=== PATIENT | female | born 1955 ===

== ENCOUNTER 2018-10-11 12:28 | Emergency (ER) | payer OTHER, BC ==
[~2018-10-11] VITALS: Ht 162.6 cm; Wt 77.1 kg
[~2018-10-11 12:28] MED LIST: AMLO10 PO; Celexa10 MG PO; LEVSOD100 PO; LOSARTAN-HCTZ1 EACH PO; Omeprazole20 M1 PO
[2018-10-14 03:10] LABS: HCV ANTIBODY <0.1 (0.0-0.9); HIV SCREEN 4TH GENERATION WRFX Non Reactive (Non Reactive)
== END 2018-10-11 13:16 | disposition home or self-care (01) ==
LOC: ER 12:28
PROVIDERS: Physician Assistant
DX: S61.234A Puncture wound without foreign body of right ring finger without damage to nail, initial encounter (principal); Z77.21 Contact with and (suspected) exposure to potentially hazardous body fluids; I10 Essential (primary) hypertension; Z87.891 Personal history of nicotine dependence; T68.XXXA Hypothermia, initial encounter; W46.0XXA Contact with hypodermic needle, initial encounter
CPT/HCPCS: 84460; 86317; 86703; 86803; 87340; 87389; 99282

== ENCOUNTER → 2019-01-14 | Outpatient (CLI) | payer OTHER, BC ==
[2019-01-16 10:06] LABS: HIV SCREEN 4TH GENERATION WRFX Non Reactive (Non Reactive)
== END | disposition home or self-care (01) ==
LOC: LAB EV 16:08 → LAB SHORT 16:08
PROVIDERS: Internal Medicine
DX: Z20.9 Contact with and (suspected) exposure to unspecified communicable disease (principal)
CPT/HCPCS: 87389

== ENCOUNTER 2019-02-15 08:50 | Day surgery (SDC) | payer BC ==
[~2019-02-15] VITALS: Ht 157.5 cm; Wt 76.7 kg
--- NOTE | 2019-02-15 11:18 | NUR ---
02/15/19 1118 Med Muhammad A LATE ENTRY FOR 1000 PT INFORMED OF DELAY IN ROOM DUE TO PREVIOUS CASE RUNNING LONG. PT DENIES ANY NEEDS AT THIS TIME.
== END 2019-02-15 13:45 | disposition home or self-care (01) ==
LOC: ORSCSDS 08:50
PROVIDERS: Orthopaedic Surgery
PROC: 0SQC4ZZ Repair Right Knee Joint, Percutaneous Endoscopic Approach (ICD-10-PCS; principal; 2019-02-15 10:00)
PROC: 0SBC4ZZ Excision of Right Knee Joint, Percutaneous Endoscopic Approach (ICD-10-PCS; principal; 2019-02-15 10:00)
DX: S83.241A Other tear of medial meniscus, current injury, right knee, initial encounter (principal); S83.281A Other tear of lateral meniscus, current injury, right knee, initial encounter; S83.511A Sprain of anterior cruciate ligament of right knee, initial encounter; I10 Essential (primary) hypertension; J45.909 Unspecified asthma, uncomplicated; E03.9 Hypothyroidism, unspecified; Z86.718 Personal history of other venous thrombosis and embolism; Z79.899 Other long term (current) drug therapy
CPT/HCPCS: A9270-GY; C1713; J0171; J1100; J1885; J2250; J2370; J2405; J2704; J2795; J3010; J7120

== ENCOUNTER → 2019-04-08 | Outpatient (CLI) | payer BC ==
[2019-04-08 12:42] LABS: Stool Occult Bld Immuno 1 Negative (NEGATIVE)
== END ==
LOC: LAB 11:13 → LAB SHORT 11:13
PROVIDERS: Nurse Practitioner Family
DX: C18.9 Malignant neoplasm of colon, unspecified (principal); E78.5 Hyperlipidemia, unspecified; E03.9 Hypothyroidism, unspecified
CPT/HCPCS: G0328

== ENCOUNTER 2021-05-18 11:16 | Emergency (ER) | payer OTHER, BC ==
[~2021-05-18 11:16] MED LIST changes: +OMEPRAZOLE20 M1 PO
== END 2021-05-18 11:39 | disposition left against medical advice (07) ==
LOC: ER 11:16
DX: Z53.21 Procedure and treatment not carried out due to patient leaving prior to being seen by health care provider (principal)
CPT/HCPCS: J7030

== ENCOUNTER 2021-07-12 11:10 | Day surgery (SDC) | payer BC ==
[~2021-07-12] VITALS: Ht 157.5 cm; Wt 80.8 kg
[~2021-07-12 11:10] MED LIST changes: +CALCIUM CIT 311 EAC7 PO; +EXFORGE HCT PO; +MELO7.5 PO; +META800; +PRAV20 PO
[2021-07-12] MEDS ORDERED: VALSARTAN-HCTZ1 EA10 PO (11:25)
== END 2021-07-12 12:20 | disposition home or self-care (01) ==
LOC: ORSCSDS 11:10
PROVIDERS: Anesthesiology
PROC: 3E0R33Z Introduction of Anti-inflammatory into Spinal Canal, Percutaneous Approach (ICD-10-PCS; principal; 2021-07-12 12:00)
DX: M51.16 Intervertebral disc disorders with radiculopathy, lumbar region (principal); M54.50 Low back pain, unspecified; I10 Essential (primary) hypertension; E03.9 Hypothyroidism, unspecified; K21.9 Gastro-esophageal reflux disease without esophagitis; F32.A Depression, unspecified; E78.00 Pure hypercholesterolemia, unspecified; Z79.899 Other long term (current) drug therapy
CPT/HCPCS: J1040

== ENCOUNTER 2021-08-26 09:00 | Emergency (ER) | payer BC ==
[~2021-08-26] VITALS: Ht 157.5 cm; Wt 80.7 kg
[~2021-08-26 09:00] MED LIST changes: -META800; +META800 PO; +VALSARTAN-HCTZ1 EA10 PO
[2021-08-26 10:18] LABS: BASOPHILS ABSOLUTE AUTO 0.04 K/mm3 (0.00-0.23); BASOPHILS PERCENT AUTO 0 % (0-2); EOSINOPHILS ABSOLUTE AUTO 0.09 K/mm3 (0.00-0.68); EOSINOPHILS PERCENT AUTO 1 % (0-6); Hematocrit 42.1 % (33.0-51.0); Hemoglobin 13.7 g/dL (11.5-16.0); IMMATURE GRAN ABSOLUTE AUTO 0.05 K/mm3 (0.00-0.10); IMMATURE GRAN PERCENT AUTO 1 % (0-1); LYMPHOCYTES ABSOLUTE AUTO 1.54 K/mm3 (0.84-5.20); LYMPHOCYTES PERCENT AUTO 17 % (21-46); MONOCYTES PERCENT AUTO 8 % (4-13); Mean Corpuscular HGB 28.6 pg (26.0-34.0); Mean Corpuscular HGB Conc 32.5 g/dL (31.5-36.5); Mean Corpuscular Volume 88 fL (80-100); Mean Platelet Volume 9.4 fL (9.1-12.4); NEUTROPHILS ABSOLUTE AUTO 6.84 K/mm3 (1.96-9.15); NEUTROPHILS PERCENT AUTO 74 % (41-73); Platelet Count 278 K/mm3 (150-400); RDW Coefficient Variation 12.8 % (11.7-14.2); RDW Standard Deviation 41.6 fL (35.1-46.3); Red Blood Cell Count 4.79 M/mm3 (3.80-5.20); White Blood Cell Count 9.26 K/mm3 (4.00-11.30)
[2021-08-26 10:41] LABS: Alanine Aminotransfer (ALT/SGP 49 U/L (12-78); Albumin, Blood 3.7 g/dL (3.4-5.0); Alk Phos 115 U/L (50-136); Anion Gap 5 mmol/L (6-16); Aspartate Aminotrans (AST/SGOT 30 U/L (12-37); Blood Urea Nitrogen 18 mg/dL (8-24); Bun/Creatinine Ratio 20.5 (12.0-20.0); CO2, Blood 28 mmol/L (21-32); Calcium, Blood 9.7 mg/dL (8.5-10.1); Chloride, Blood 104 mmol/L (98-108); Creatinine, Blood 0.88 mg/dL (0.40-1.00); Globulin, Blood 3.7 g/dL (2.2-4.0); Glomerular Filtration Rate >60 (60-); Glucose, Blood 112 mg/dL (70-99); Potassium, Blood 3.7 mmol/L (3.5-5.5); Sodium, Blood 137 mmol/L (136-145); Total Protein, Blood 7.4 g/dL (6.4-8.2)
[2021-08-26] MEDS ORDERED: SUCR1 PO (14:27)
[2021-08-26] MEDS ORDERED: PANT20 PO (14:27)
== END 2021-08-26 14:40 | disposition home or self-care (01) ==
LOC: ER 09:00
PROVIDERS: Emergency Medicine
DX: K57.30 Diverticulosis of large intestine without perforation or abscess without bleeding (principal); K76.0 Fatty (change of) liver, not elsewhere classified; Z88.8 Allergy status to other drugs, medicaments and biological substances; Z88.0 Allergy status to penicillin; Z79.899 Other long term (current) drug therapy; I10 Essential (primary) hypertension; E03.9 Hypothyroidism, unspecified
CPT/HCPCS: 36415; 74176; 76705; 80053; 83605; 83690; 84484; 85025; 93005; 93010; 93975; 96374; 96375; 99284-25; A9270; J1170; J2405; J3010

== ENCOUNTER 2021-08-28 12:24 | Day surgery (SDC) | payer BC ==
[~2021-08-28] VITALS: Ht 157.5 cm; Wt 80.9 kg
[~2021-08-28 12:24] MED LIST changes: +PANT20 PO; +SUCR1 PO
--- NOTE | 2021-08-28 12:50 | NUR ---
Ambulatory in Day Surgery History, Chart, Medications and Allergies reviewed before start of procedure. Lungs clear T/O to Auscultation. Patient confirms NPO status and agrees with scheduled surgery. Pre-Op teaching done. Pt verbalizes understanding. Patient States Post-Procedure ride home has been arranged.
--- NOTE | 2021-08-28 13:08 | NUR ---
08/28/21 1308 HERBER ROGERS History, Chart, Medications and Allergies reviewed before start of procedure. Patient confirms NPO status and agrees with scheduled surgery. 3-LEAD EKG REVIEWED WITH PHYSICIAN PRIOR TO START OF PROCEDURE. MONITOR INTACT WITH CONTINUOUS PULSE OXIMETRY AND INTERMITTENT BP. PATIENT DETERMINED TO BE ASA APPROPRIATE FOR PROPOFOL SEDATION PRIOR TO START OF PROCEDURE BY DR. POOLE. O2 VIA N/C INTACT THROUGHOUT SEDATION/PROCEDURE.
--- NOTE | 2021-08-28 13:57 | NUR ---
RECIEVED REPORT FROM HERBER ROGERS RN. PT ENTERED SDS ALERT AND ORIENTED, STATING BURNING PAIN THAT WAS UNRELIEVED BY DRINK OR REPOSITIONING.
--- NOTE | 2021-08-28 14:00 | NUR ---
PT STATES PAIN IS RELIEVED FROM 6 TO 5 AFTER DILAUDED. PAIN IS IN EPIGASTRIC REGION, DOES NOT RADIATE ANY WHERE AND FEELS SHARP AND CONSTANT.
--- NOTE | 2021-08-28 14:15 | NUR ---
PT STATES PAIN HAS BEEN RELIEVED TO TOLERABLE LEVEL, SAYS SHE IS READY TO BE DISCHARGED.
--- NOTE | 2021-08-28 14:31 | NUR ---
Ambulatory in Day Surgery Discharge instructions reviewed with patient. Patient verbalizes understanding. Copy given to patient to take home. Patient States Post-Procedure ride home has been arranged. Discharged via wheelchair to private car for ride home. ALL BELONGINGS RETURNED TO PATIENT.
== END 2021-08-28 23:52 | disposition home or self-care (01) ==
LOC: ORSCMMR 12:24 → ORD 13:30 → ORSCMMR 13:30
PROVIDERS: Surgery
PROC: 0DB48ZX Excision of Esophagogastric Junction, Via Natural or Artificial Opening Endoscopic, Diagnostic (ICD-10-PCS; principal; 2021-08-28 13:30)
PROC: 0DB68ZX Excision of Stomach, Via Natural or Artificial Opening Endoscopic, Diagnostic (ICD-10-PCS; principal; 2021-08-28 13:30)
DX: R10.13 Epigastric pain (principal); K31.7 Polyp of stomach and duodenum; I10 Essential (primary) hypertension; K29.70 Gastritis, unspecified, without bleeding; Z79.899 Other long term (current) drug therapy
CPT/HCPCS: 88305; 88342; J1170; J1885; J2704; J7120

== ENCOUNTER 2021-10-18 19:25 | Emergency (ER) | payer OTHER, BC ==
[~2021-10-18] VITALS: Ht 157.5 cm; Wt 80.7 kg
[2021-10-20 10:07] LABS: HCV ANTIBODY <0.1 (0.0-0.9)
[2021-10-21 00:08] LABS: HIV AB/P24 AG SCREEN Non Reactive (Non Reactive)
== END 2021-10-18 19:51 | disposition home or self-care (01) ==
LOC: ER 19:25
PROVIDERS: Physician Assistant
DX: Z77.21 Contact with and (suspected) exposure to potentially hazardous body fluids (principal); I10 Essential (primary) hypertension; E03.9 Hypothyroidism, unspecified; Z88.8 Allergy status to other drugs, medicaments and biological substances; Z79.899 Other long term (current) drug therapy
CPT/HCPCS: 84460; 86317; 86703; 86803; 87340; 87389

== ENCOUNTER 2021-11-07 12:37 | Emergency (ER) | payer OTHER, BC ==
[~2021-11-07] VITALS: Ht 165.1 cm; Wt 77.1 kg
[2021-11-08 08:12] LABS: HCV ANTIBODY <0.1 (0.0-0.9); HIV AB/P24 AG SCREEN Non Reactive (Non Reactive)
== END 2021-11-07 13:00 | disposition home or self-care (01) ==
LOC: ER 12:37
PROVIDERS: Physician Assistant
DX: S61.210A Laceration without foreign body of right index finger without damage to nail, initial encounter (principal); Z77.21 Contact with and (suspected) exposure to potentially hazardous body fluids; I10 Essential (primary) hypertension; Z79.899 Other long term (current) drug therapy; Z87.891 Personal history of nicotine dependence; W45.8XXA Other foreign body or object entering through skin, initial encounter
CPT/HCPCS: 36415; 84460; 86317; 86703; 86803; 87340; 87389; 99283

== ENCOUNTER 2021-12-05 12:11 | Day surgery (SDC) | payer BC ==
[~2021-12-05] VITALS: Ht 157.5 cm; Wt 80.4 kg
--- NOTE | 2021-12-05 12:43 | NUR ---
12/05/21 1243 Camelia Williamson TETRACAINE AND PLEDGET PLACED IN LEFT EYE BY [facility].G
== END 2021-12-05 13:57 | disposition home or self-care (01) ==
LOC: ORSCSDS 12:11
PROVIDERS: Ophthalmology
PROC: 08RK3JZ Replacement of Left Lens with Synthetic Substitute, Percutaneous Approach (ICD-10-PCS; principal; 2021-12-05 13:30)
DX: H25.13 Age-related nuclear cataract, bilateral (principal); I10 Essential (primary) hypertension; K21.9 Gastro-esophageal reflux disease without esophagitis; Z79.899 Other long term (current) drug therapy
CPT/HCPCS: J2001; J2250; J3010; J3301; J7040; V2632

== ENCOUNTER 2022-01-02 06:43 | Day surgery (SDC) | payer BC ==
[~2022-01-02] VITALS: Ht 157.5 cm; Wt 79.2 kg
== END 2022-01-02 08:36 | disposition home or self-care (01) ==
LOC: ORSCSDS 06:43
PROVIDERS: Ophthalmology
PROC: 08RJ3JZ Replacement of Right Lens with Synthetic Substitute, Percutaneous Approach (ICD-10-PCS; principal; 2022-01-02 08:00)
DX: H25.11 Age-related nuclear cataract, right eye (principal); I10 Essential (primary) hypertension; K21.9 Gastro-esophageal reflux disease without esophagitis; E66.9 Obesity, unspecified; Z68.31 Body mass index [BMI] 31.0-31.9, adult; Z79.899 Other long term (current) drug therapy
CPT/HCPCS: J2001; J2250; J3010; J3301; J7040; V2632

== ENCOUNTER 2022-01-29 12:41 | Emergency (ER) | payer OTHER, BC ==
[~2022-01-29] VITALS: Ht 157.5 cm; Wt 78.9 kg
[2022-01-29] MEDS ORDERED: HYDR1TAB94 PO (15:53)
== END 2022-01-29 16:15 | disposition home or self-care (01) ==
LOC: ER 12:41
DX: S80.02XA Contusion of left knee, initial encounter (principal); I10 Essential (primary) hypertension; E78.5 Hyperlipidemia, unspecified; Z79.899 Other long term (current) drug therapy; W01.0XXA Fall on same level from slipping, tripping and stumbling without subsequent striking against object, initial encounter
CPT/HCPCS: 29505; 73564; 99283-25; A9270

== ENCOUNTER → 2023-01-15 | Outpatient (CLI) | payer BC ==
[~2023-01-15] MED LIST changes: +HYDR1TAB94 PO
== END | disposition home or self-care (01) ==
LOC: LAB 08:29 → LAB SHORT 08:29
DX: M67.462 Ganglion, left knee (principal)
CPT/HCPCS: 88304

== ENCOUNTER 2024-02-05 10:35 | Emergency (ER) | payer OTHER, MEDICARE ==
[~2024-02-05] VITALS: Ht 154.9 cm; Wt 77.1 kg
[2024-02-05 10:41] VITALS: BP 161/71
== END 2024-02-05 11:26 | disposition home or self-care (01) ==
LOC: ER 10:35
DX: S51.812A Laceration without foreign body of left forearm, initial encounter (principal); W22.8XXA Striking against or struck by other objects, initial encounter; Z88.8 Allergy status to other drugs, medicaments and biological substances; Z79.899 Other long term (current) drug therapy; I10 Essential (primary) hypertension; E03.9 Hypothyroidism, unspecified; Z87.891 Personal history of nicotine dependence
CPT/HCPCS: 99282

== ENCOUNTER 2024-02-06 11:08 | Emergency (ER) | payer OTHER, MEDICARE ==
[~2024-02-06] VITALS: Ht 157.5 cm; Wt 78.9 kg
[2024-02-06 11:19] VITALS: BP 145/79
== END 2024-02-06 11:30 | disposition home or self-care (01) ==
LOC: ER 11:08
DX: S51.812A Laceration without foreign body of left forearm, initial encounter (principal); X58.XXXA Exposure to other specified factors, initial encounter; Y99.0 Civilian activity done for income or pay; Z88.8 Allergy status to other drugs, medicaments and biological substances; Z79.899 Other long term (current) drug therapy; I10 Essential (primary) hypertension; E03.9 Hypothyroidism, unspecified; Z87.891 Personal history of nicotine dependence
CPT/HCPCS: 99282

== ENCOUNTER 2024-04-27 10:34 | Day surgery (SDC) | payer MEDICARE ==
[~2024-04-27] VITALS: Ht 157.5 cm; Wt 78.5 kg
[~2024-04-27 10:34] MED LIST changes: +Amlodipine Bes2.5 MG PO; +Budeprion Xl300 MG; +Bupropion Xl150 MG PO; +CITA10S PO; +DIOVAN HCT 1601 EAC1 PO; +LEVSOD25 PO; +OMEP20ER PO; +PRED AC-MOXI-BRO5 M1
--- NOTE | 2024-04-27 11:05 | NUR ---
04/27/24 1105 Natalia Larkin BRUISING ON RIGHT ARM
[2024-04-27] MEDS ORDERED: Lactated Ringer's 1,000 ML IV ONE ×2 (11:08→11:13)
[2024-04-27] MEDS ORDERED: CeFAZolin Sodium 2,000 MG VIAL ONE (11:12)
[2024-04-27] MEDS ORDERED: Lidocaine 2%-Epineph 1:200000 20 ML SDV ONE (11:13)
[2024-04-27] MEDS ORDERED: Dexamethasone Sod Phos 10 MG/ML 1ML VIAL ONE ×2 (11:13→13:04)
[2024-04-27] MEDS ORDERED: NS 50 ML IV ONE (11:13)
[2024-04-27] MEDS ORDERED: Ropivacaine 0.5% HCL/PF 5 MG/ML 30ML Vial ONE (11:14)
[2024-04-27] MEDS ORDERED: Midazolam HCl 1MG / ML 2ML Vial ONE (11:15)
[2024-04-27] MEDS ORDERED: FentaNYL Citrate 50 MCG/ML 2 ML Injection ONE (11:15)
[2024-04-27] MEDS ORDERED: propofoL 20 ML IV ONE ×2 (11:40→11:52)
--- NOTE | 2024-04-27 12:13 | NUR ---
04/27/24 Cristela Casas FINAL POSITION APPROVED BY DR OROZCO
[2024-04-27] MEDS ORDERED: Glycopyrrolate 0.2 MG/ML 5ML VIAL ONE (12:20)
[2024-04-27] MEDS ORDERED: Ondansetron HCl 2 MG / ML 2ML Vial ONE (13:04)
[2024-04-27 13:37] VITALS: BP 127/78
--- NOTE | 2024-04-27 13:43 | NUR ---
04/27/24 1343 Wild Haynes GIVEN, PER PT REQUEST.
== END 2024-04-27 13:52 | disposition home or self-care (01) ==
LOC: ORSCSDS 10:34
PROVIDERS: Orthopaedic Surgery
PROC: 0RQT0ZZ Repair Left Carpometacarpal Joint, Open Approach (ICD-10-PCS; principal; 2024-04-27 11:45)
DX: M18.12 Unilateral primary osteoarthritis of first carpometacarpal joint, left hand (principal); E03.9 Hypothyroidism, unspecified; Z87.891 Personal history of nicotine dependence; I12.9 Hypertensive chronic kidney disease with stage 1 through stage 4 chronic kidney disease, or unspecified chronic kidney disease; N18.2 Chronic kidney disease, stage 2 (mild); Z79.899 Other long term (current) drug therapy; E66.9 Obesity, unspecified; Z68.31 Body mass index [BMI] 31.0-31.9, adult
CPT/HCPCS: C1713; J0690; J1100; J2250; J2405; J2704; J2795; J3010; J7120

== ENCOUNTER 2024-08-16 18:50 | Emergency (ER) | payer OTHER, MEDICARE ==
[~2024-08-16] VITALS: Ht 157.5 cm; Wt 74.8 kg
[2024-08-16 19:07] VITALS: BP 129/82
== END 2024-08-16 20:44 | disposition home or self-care (01) ==
LOC: ER 18:50
DX: S60.221A Contusion of right hand, initial encounter (principal); S09.90XA Unspecified injury of head, initial encounter; I10 Essential (primary) hypertension; E03.9 Hypothyroidism, unspecified; Z87.891 Personal history of nicotine dependence; Z91.041 Radiographic dye allergy status; Z79.890 Hormone replacement therapy; Z79.899 Other long term (current) drug therapy; Z59.89 Other problems related to housing and economic circumstances; W01.0XXA Fall on same level from slipping, tripping and stumbling without subsequent striking against object, initial encounter
CPT/HCPCS: 70450; 72125; 73130; 99284-25